=== PATIENT | female | born 2000 | race Two or more races ===

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

== ENCOUNTER 2019-04-20 20:05 | Emergency (ER) | payer MEDICAID ==
[~2019-04-20] VITALS: Ht 149.9 cm; Wt 115.0 kg
--- NOTE | 2019-04-20 20:41 | NUR ---
THIS IS A 19Y F THAT COMES IN W/ C/O N/V X2DAYS. PT REPORTS SHE IS 6WKS AND IS UNABLE TO KEEP ANYTHING DOWN. PT NOT CURRENTLY VOMITING, MOIST MUCUS MEMBRANES. SPOUSE AT BEDSIDE. PT CONNECTED TO MONITORING VSS, NADN. CALL LIGHT IN REACH, NO FURTHER NEEDS AT THIS TIME.
[2019-04-20 20:45] VITALS: BP 137/72
[2019-04-20] MEDS ORDERED: ONDANSETRON ODT 8 MG ONE (20:46)
--- NOTE | 2019-04-20 20:47 | NUR ---
PT MEDICATED PER MAR
[2019-04-20] MEDS ORDERED: ONDANSETRON ODT 8 MG PO ONE (21:00)
--- NOTE | 2019-04-20 21:06 | NUR ---
PT PROVIDED WATER FOR PO FLUID CHALLENGE.
--- NOTE | 2019-04-20 21:46 | NUR ---
PT REPORTS IMPROVED NAUSEA, ABLE TO TAKE PO FLUIDS W/OUT VOMITING. MD TO BE UPDATED
--- NOTE | 2019-04-20 22:13 | NUR ---
Patient/Caregiver given discharge instructions and they have confirmed that they understand the instructions. Patient ambulatory with steady gait.
== END 2019-04-20 22:21 | disposition home or self-care (01) ==
LOC: ED 22:00
DX: O21.9 Vomiting of pregnancy, unspecified (principal); Z3A.01 Less than 8 weeks gestation of pregnancy; Z87.891 Personal history of nicotine dependence
CPT/HCPCS: 99283; Q0162